=== PATIENT | male | born 1980 | race Caucasian/White ===

== ENCOUNTER 2023-07-30 13:35 | Emergency (ER) | payer BC, OTHER ==
[~2023-07-30] VITALS: Ht 175.3 cm; Wt 96.7 kg
[2023-07-30 13:36] VITALS: TEMP 97.3
[2023-07-30] MEDS ORDERED: IBUP200C25 PO (13:41)
[2023-07-30] MEDS ORDERED: LISI20TA35 PO (13:41)
[2023-07-30] MEDS ORDERED: ADDE30CA3 PO (13:41)
[2023-07-30 14:29] LABS: BASO % 0.5 % (0.0-1.0); EOS # 0.4 10^3/uL (0.0-0.5); EOS % 5.1 % (0.0-3.0); HEMATOCRIT 47.4 % (42.0-52.0); HEMOGLOBIN 16.3 g/dl (13.5-17.5); LYMPH % 25.3 % (24.0-44.0); MEAN CORPUSCULAR HEMOGLOBIN 31.1 pg (27.0-33.0); MEAN CORPUSCULAR HGB CONC 34.4 g/dl (32.0-36.5); MEAN CORPUSCULAR VOLUME 90.5 fl (80.0-96.0); MONO # 0.8 10^3/uL (0.0-0.8); MONO % 9.7 % (2.0-8.0); NEUTROPHILS # 4.6 10^3/uL (1.5-8.5); PLATELET COUNT, AUTOMATED 280 10^3/uL (150-450); RED BLOOD COUNT 5.24 10^6/uL (4.30-6.10); WHITE BLOOD COUNT 7.9 10^3/uL (4.0-10.0)
[2023-07-30 15:01] LABS: LIPASE 34 U/L (12-53)
[2023-07-30 15:03] LABS: ALBUMIN 4.4 G/DL (3.2-5.2); ALKALINE PHOSPHATASE 82 U/L (46-116); ALT/SGPT 35 U/L (7.0-40); AST/SGOT 21 U/L (<34); BILIRUBIN,DIRECT 0.2 MG/DL (<0.4); BILIRUBIN,TOTAL 0.5 MG/DL (0.3-1.2); BLOOD UREA NITROGEN 14 MG/DL (9-23); CARBON DIOXIDE LEVEL 29 MMOL/L (20-31); CHLORIDE LEVEL 102 MMOL/L (98-107); GLOMERULAR FILTRATION RATE > 60.0 (>60); GLUCOSE, FASTING 94 MG/DL (60-100); POTASSIUM SERUM 3.9 MMOL/L (3.5-5.1); SODIUM LEVEL 137 MMOL/L (136-145); TOTAL PROTEIN 7.2 G/DL (5.7-8.2)
[2023-07-30] MEDS ORDERED: ISOVUE-370 76% 100ML VIAL As Ordered ONE (15:23)
[2023-07-30] MEDS ORDERED: methocarbamoL 750 MG TAB PO ONE (16:05)
[2023-07-30] MEDS ORDERED: KETOROLAC 30 MG/ML 1ML VIAL IV ONE (16:05)
[2023-07-30 17:45] VITALS: BP 150/85
[2023-07-30 17:50] VITALS: O2SAT 99
== END 2023-07-30 19:20 | disposition home or self-care (01) ==
LOC: M ED 13:35
DX: R10.9 Unspecified abdominal pain (principal); M25.511 Pain in right shoulder; N50.812 Left testicular pain; I10 Essential (primary) hypertension; F90.9 Attention-deficit hyperactivity disorder, unspecified type; Z79.811 Long term (current) use of aromatase inhibitors; Z79.899 Other long term (current) drug therapy
CPT/HCPCS: 73030; 74174; 76870; 80048; 80076; 81001; 83690; 85025; 93005; 93976; 96374; 99285; J1885; Q9967